=== PATIENT | female | born 1990 | race American Indian/Alaskan Native ===

== ENCOUNTER 2017-03-24 03:39 | Emergency (ER) | payer OTHER ==
[2017-03-24] MEDS ORDERED: Sodium Chloride 0.9% 1,000 ML IV ONE (04:03)
[2017-03-24] MEDS ORDERED: Pantoprazole 40 MG Vial IVPUSH ONE (04:04)
[2017-03-24] MEDS ORDERED: Ondansetron 4 MG/2 ML SDV IV ONE ×2 (04:28→06:06)
--- NOTE | 2017-03-24 04:30 | EDM.PDOC ---
ED HPI GENERAL MEDICAL PROBLEM - General Chief Complaint: Back Pain or Injury Stated Complaint: SEVERE ABD AND BACK PAIN Time Seen by Provider: 03/24/17 04:20 Source of Information: Reports: Patient History Limitations: Reports: No Limitations - History of Present Illness INITIAL COMMENTS - FREE TEXT/NARRATIVE: This 26 yo female patient reports to the ED with acute on chronic upper abdominal pain that radiates to her back. The patient reports she has had similar symptoms over the past 3 years, but has not had any relief. The patient reports she stopped taking her omeprazole and Nexium due to continued symptoms. The patient reports she has not seen her primary care provider for a while. The patient reports this episode of pain started 2 days ago and has not subsided. The patient denies any drug use other than marijuana, but admits to ETOH use. Onset Date: 03/22/17 Duration: Constant, Getting Worse Location: Reports: Abdomen (upper ), Back (radiating pain from upper abdomen into the back) Quality: Reports: Ache, Sharp Severity: Severe Improves with: Reports: None Worsens with: Reports: None Associated Symptoms: Reports: Nausea/Vomiting Upper Abdomen Pain Score (Numeric/FACES): 10 - Related Data Allergies Allergy/AdvReac Type Severity Reaction Status Date / Time No Known Allergies Allergy Verified 01/14/15 12:57 Home Meds: Home Meds Levonorgestrel [Mirena] 1 applic VAG ASDIRECTED 01/14/15 [History] Past Medical History - Past Health History Medical/Surgical History: Denies Medical/Surgical History Social & Family History - Tobacco Use Smoking Status *Q: Former Smoker Years of Tobacco use: 1 Used Tobacco, but Quit: Yes Month Tobacco Last Used: 2007 Second Hand Smoke Exposure: Yes - Alcohol Use Days Per Week of Alcohol Use: 0 - Recreational Drug Use Recreational Drug Use: No Drug Use in Last 12 Months: Yes Recreational Drug Type: Reports: Marijuana/Hashish Recreational Drug Use Frequency: Rarely ED ROS GENERAL - Review of Systems Review Of Systems: ROS reveals no pertinent complaints other than HPI. ED EXAM, GI/ABD - Physical Exam Exam: See Below Exam Limited By: No Limitations General Appearance: Alert, WD/WN, Severe Distress, Thin Eyes: Bilateral: Normal Appearance, EOMI Ears: Normal External Exam, Normal Canal, Hearing Grossly Normal, Normal TMs Nose: Normal Inspection, Normal Mucosa, No Blood Throat/Mouth: Normal Inspection, Normal Lips, Normal Teeth, Normal Gums, Normal Oropharynx, Normal Voice, No Airway Compromise Head: Atraumatic, Normocephalic Neck: Normal Inspection, Supple, Non-Tender, Full Range of Motion Respiratory/Chest: No Respiratory Distress, Lungs Clear, Normal Breath Sounds, No Accessory Muscle Use, Chest Non-Tender Cardiovascular: Normal Peripheral Pulses, Regular Rate, Rhythm, No Edema, No Gallop, No JVD, No Murmur, No Rub GI/Abdominal Exam: No Organomegaly, No Distention, No Abnormal Bruit, No Mass, Pelvis Stable, Tender (diffuse upper abdominal tenderness) (Female) Exam: Deferred Rectal (Female) Exam: Deferred Back Exam: Normal Inspection, CVA Tenderness (R) Extremities: Normal Inspection, Normal Range of Motion, Non-Tender, Normal Capillary Refill, No Pedal Edema Neurological: Alert, Oriented, CN II-XII Intact, Normal Cognition, Normal Gait, Normal Reflexes, No Motor/Sensory Deficits Psychiatric: Normal Affect, Normal Mood Skin Exam: Warm, Dry, Intact, Normal Color, No Rash Lymphatic: No Adenopathy Course - Vital Signs Last Recorded V/S: Last Vital Signs Temp 36.6 C 03/24/17 03:55 Pulse 91 03/24/17 03:55 Resp 28 H 03/24/17 03:55 BP 138/106 H 03/24/17 03:55 Pulse Ox 99 03/24/17 03:55 - Orders/Labs/Meds Labs: Laboratory Tests 03/24/17 03/24/17 03/24/17 Range/Units 04:00 04:00 04:00 WBC (5.0-10.0) 10^3/uL RBC (4.2-5.4) 10^6/uL Hgb (12.0-16.0) g/dL Hct (37.0-47.0) % MCV (80-100) fL MCH (27.0-34.0) pg MCHC (33.0-35.0) g/dL Plt Count (150-450) 10^3/uL Neut % (Auto) (42.2-75.2) % Lymph % (Auto) (20.5-50.1) % [place]zie % (Auto) (2-8) % Eos % (Auto) (1.0-3.0) % Baso % (Auto) (0.0-1.0) % Sodium (135-145) mmol/L Potassium (3.6-5.0) mmol/L Chloride (101-111) mmol/L Carbon Dioxide (21.0-31.0) mmol/L Anion Gap BUN (7-18) mg/dL Creatinine (0.6-1.3) mg/dL Est Cr Clr Drug Dosing mL/min Estimated GFR (MDRD) BUN/Creatinine Ratio Glucose (74-105) mg/dL Calcium (8.4-10.2) mg/dl Total Bilirubin (0.2-1.0) mg/dL AST (10-42) IU/L ALT (10-60) IU/L Alkaline Phosphatase (42-121) IU/L Total Protein (6.7-8.2) g/dl Albumin (3.2-5.5) g/dl Globulin Albumin/Globulin Ratio Amylase (28-100) U/L Lipase (22-51) U/L Urine Color Yellow (YELLOW) Urine Appearance Cloudy (CLEAR) Urine pH 6.0 (5.0-9.0) Ur Specific [place] 1.025 (1.005-1.030) Urine Protein 100 H (NEGATIVE) Urine Glucose (UA) Negative (NEGATIVE) Urine Ketones 40 H (NEGATIVE) Urine Occult Blood Moderate H (NEGATIVE) Urine Nitrite Negative (NEGATIVE) Urine Bilirubin Moderate H (NEGATIVE) Urine Urobilinogen 0.2 (0.2-1.0) mg/dL Ur Leukocyte Esterase Trace H (NEGATIVE) Urine RBC 5-10 H /HPF Urine WBC 10-20 H (0-5/HPF) /HPF Ur Epithelial Cells Many H /HPF Urine Bacteria Many H (0-FEW/HPF) /HPF Urine Mucus Many H /LPF Urine HCG, Qual Negative Urine Opiates Screen Positive H (NEGATIVE) Ur Oxycodone Screen Negative (NEGATIVE) Urine Methadone Screen Negative (NEGATIVE) Ur Barbiturates Screen Negative (NEGATIVE) U Tricyclic Antidepress Negative (NEGATIVE) Ur Phencyclidine Scrn Negative (NEGATIVE) Ur Amphetamine Screen Negative (NEGATIVE) U Methamphetamines Scrn Negative (NEGATIVE) Urine MDMA Screen Negative (NEGATIVE) U Benzodiazepines Scrn Negative (NEGATIVE) Urine Cocaine Screen Negative (NEGATIVE) U Marijuana (THC) Screen Positive H (NEGATIVE) 03/24/17 03/24/17 03/24/17 Range/Units 04:07 04:07 04:07 WBC 11.8 H (5.0-10.0) 10^3/uL RBC 4.81 (4.2-5.4) 10^6/uL Hgb 14.2 (12.0-16.0) g/dL Hct 42.7 (37.0-47.0) % MCV 88.8 (80-100) fL MCH 29.5 (27.0-34.0) pg MCHC 33.3 (33.0-35.0) g/dL Plt Count 267 (150-450) 10^3/uL Neut % (Auto) 77.6 H (42.2-75.2) % Lymph % (Auto) 16.6 L (20.5-50.1) % Benzie % (Auto) 5.4 (2-8) % Eos % (Auto) 0.1 L (1.0-3.0) % Baso % (Auto) 0.3 (0.0-1.0) % Sodium 141 (135-145) mmol/L Potassium 3.5 L (3.6-5.0) mmol/L Chloride 105 (101-111) mmol/L Carbon Dioxide 22.0 (21.0-31.0) mmol/L Anion Gap 17.5 BUN 17 (7-18) mg/dL Creatinine 0.9 (0.6-1.3) mg/dL Est Cr Clr Drug Dosing 90.50 mL/min Estimated GFR (MDRD) > 60 BUN/Creatinine Ratio 18.88 Glucose 146 H (74-105) mg/dL Calcium 9.8 (8.4-10.2) mg/dl Total Bilirubin 1.0 (0.2-1.0) mg/dL AST 30 (10-42) IU/L ALT 18 (10-60) IU/L Alkaline Phosphatase 54 (42-121) IU/L Total Protein 7.8 (6.7-8.2) g/dl Albumin 5.0 (3.2-5.5) g/dl Globulin 2.8 Albumin/Globulin Ratio 1.79 Amylase 59 (28-100) U/L Lipase 15 L (22-51) U/L Urine Color (YELLOW) Urine Appearance (CLEAR) Urine pH (5.0-9.0) Ur Specific [place] (1.005-1.030) Urine Protein (NEGATIVE) Urine Glucose (UA) (NEGATIVE) Urine Ketones (NEGATIVE) Urine Occult Blood (NEGATIVE) Urine Nitrite (NEGATIVE) Urine Bilirubin (NEGATIVE) Urine Urobilinogen (0.2-1.0) mg/dL Ur Leukocyte Esterase (NEGATIVE) Urine RBC /HPF Urine WBC (0-5/HPF) /HPF Ur Epithelial Cells /HPF Urine Bacteria (0-FEW/HPF) /HPF Urine Mucus /LPF Urine HCG, Qual Urine Opiates Screen (NEGATIVE) Ur Oxycodone Screen (NEGATIVE) Urine Methadone Screen (NEGATIVE) Ur Barbiturates Screen (NEGATIVE) U Tricyclic Antidepress (NEGATIVE) Ur Phencyclidine Scrn (NEGATIVE) Ur Amphetamine Screen (NEGATIVE) U Methamphetamines Scrn (NEGATIVE) Urine MDMA Screen (NEGATIVE) U Benzodiazepines Scrn (NEGATIVE) Urine Cocaine Screen (NEGATIVE) U Marijuana (THC) Screen (NEGATIVE) Meds: Medications Discontinued Medications Generic Name Dose Route Start Last Admin Trade Name Freq PRN Reason Stop Dose Admin Hydromorphone HCl 0.5 mg 03/24/17 06:08 03/24/17 06:14 Dilaudid IVPUSH 03/24/17 06:09 0.5 mg ONETIME ONE Administration Sodium Chloride 1,000 mls @ 999 mls/hr 03/24/17 04:03 03/24/17 04:16 Normal Saline IV 03/24/17 05:03 999 mls/hr .BOLUS ONE Administration Iopamidol 75 ml 03/24/17 04:52 03/24/17 05:40 Isovue-300 (61%) IVPUSH 03/24/17 04:53 75 ml ONETIME ONE Administration Ketorolac Tromethamine 30 mg 03/24/17 06:22 Toradol IVPUSH 03/24/17 06:23 ONETIME ONE Ondansetron HCl 4 mg 03/24/17 04:28 03/24/17 04:34 Zofran IV 03/24/17 04:29 4 mg ONETIME ONE Administration Ondansetron HCl 4 mg 03/24/17 06:06 03/24/17 06:14 Zofran IV 03/24/17 06:07 4 mg ONETIME ONE Administration Pantoprazole Sodium 80 mg 03/24/17 04:04 03/24/17 04:16 Protonix Iv IVPUSH 03/24/17 04:05 80 mg .BOLUS ONE Administration Departure - Departure Time of Disposition: 06:27 Disposition: Home, Self-Care 01 Condition: Fair Clinical Impression: Bilateral kidney stones Ovarian cyst Qualifiers: Laterality: left Qualified Code(s): N83.202 - Unspecified ovarian cyst, left side GERD (gastroesophageal reflux disease) Qualifiers: Esophagitis presence: without esophagitis Qualified Code(s): K21.9 - Gastro- esophageal reflux disease without esophagitis UTI (urinary tract infection) Qualifiers: Urinary tract infection type: site unspecified Hematuria presence: with hematuria Qualified Code(s): N39.0 - Urinary tract infection, site not specified ; R31.9 - Hematuria, unspecified - Discharge Information Instructions: Kidney Stones, [id number], Ovarian Cyst, [id number], Gastroesophageal Reflux Disease, Adult, Urinary Tract Infection, Adult, Easy-to- Read Forms: ED Department Discharge Care Plan Goals: The patient was advised of the examination, lab and CT results during the visit. The patient was given IV fluid, IV Toradol, IV Zofran and IV Dilaudid while in the ED. The patient was discharged with scripts for 1) Omeprazole (20 mg) #20 to take 1 by mouth 2 times per day for 10 days, Zofran ODT (4 mg) #20 to take 1 by mouth every 8 hours as needed and Cipro (500 mg) #6 to take 1 by mouth 2 times per day for 3 days. The patient should follow-up with her primary care facility for continued evaluation and management.
[2017-03-24 04:32] LABS: CHLORIDE,CL 105 mmol/L (101-111); SODIUM,NA 141 mmol/L (135-145)
[2017-03-24] MEDS ORDERED: Iopamidol 612 MG/ML 75 ML Bottle IVPUSH ONE (04:52)
[2017-03-24] MEDS ORDERED: HYDROmorphone 1 MG/ML Syringe IVPUSH ONE (06:08)
[2017-03-24] MEDS ORDERED: Ketorolac 30 MG/ML SDV IVPUSH ONE (06:22)
[2017-03-24 06:36] VITALS: BP 119/53
== END 2017-03-24 06:44 | disposition home or self-care (01) ==
LOC: DL.ED 03:39
DX: N20.0 Calculus of kidney (principal); N83.202 Unspecified ovarian cyst, left side; K21.9 Gastro-esophageal reflux disease without esophagitis; N39.0 Urinary tract infection, site not specified; Z87.891 Personal history of nicotine dependence
CPT/HCPCS: 36415; 74178; 80053; 80305; 81001; 81025; 82150; 83690; 85025; 96361; 96374; 96375; 96376; 99284; C9113; J1170; J1885; J2405; J7030; Q9967

== ENCOUNTER 2017-03-25 16:21 | Emergency (ER) | payer OTHER ==
[2017-03-25 16:35] VITALS: BP 117/69
[2017-03-25] MEDS ORDERED: Ondansetron 4 MG/2 ML SDV IV ONE ×2 (16:40→17:32)
[2017-03-25] MEDS ORDERED: Sodium Chloride 0.9% 1,000 ML IV ONE (16:40)
[2017-03-25] MEDS ORDERED: Pantoprazole 40 MG Vial IVPUSH ONE (16:41)
[2017-03-25] MEDS ORDERED: Sodium Chloride 0.9% 10 ML Syringe FLUSH PRN (16:41)
[2017-03-25 17:19] LABS: CHLORIDE,CL 106 mmol/L (101-111); SODIUM,NA 142 mmol/L (135-145)
[2017-03-25] MEDS ORDERED: GI Cocktail Oral Solution 30 ML PO ONE (17:32)
[2017-03-25] MEDS ORDERED: Sucralfate 1 GM Tab PO ONE (18:40)
--- NOTE | 2017-03-25 18:43 | EDM.PDOC ---
Scribed by Daniela Candelaria 03/25/17 [id number] for Cody Schwartz MD ED HPI GENERAL MEDICAL PROBLEM - General Chief Complaint: Genitourinary Problem Stated Complaint: SEVERE BACK PAIN/CAN'T HOLD FLUIDS DOWN Time Seen by Provider: 03/25/17 16:36 Source of Information: Reports: Patient, RN Notes Reviewed History Limitations: Reports: No Limitations - History of Present Illness INITIAL COMMENTS - FREE TEXT/NARRATIVE: Patient seen here 03/24/17 and diagnosed with UTI, kidney stone, left ovarian cyst and GERD/gastritis with nausea and vomiting. Now returns due to nausea and vomiting and can't keep down any food or liquids. Denies fever or chills. Reports the pain is about 50% better then yesterday. Location: Reports: Back Quality: Reports: Ache Severity: Severe Improves with: Reports: None Worsens with: Reports: None Associated Symptoms: Reports: No Other Symptoms Upper Mid-Anterior Abdomen Pain Score (Numeric/FACES): 5 - Related Data Allergies Allergy/AdvReac Type Severity Reaction Status Date / Time No Known Allergies Allergy Verified 01/14/15 12:57 Home Meds: Home Meds Levonorgestrel [Mirena] 1 applic VAG ASDIRECTED 01/14/15 [History] Past Medical History - Past Health History Medical/Surgical History: Denies Medical/Surgical History HEENT History: Reports: None Cardiovascular History: Reports: None Respiratory History: Reports: None Gastrointestinal History: Reports: Gastritis, GERD Other Gastrointestinal History: states not formally diagnosed - states had when she was 3 years ago Genitourinary History: Reports: UTI, Recurrent [employer] History: Reports: , Other (See Below) (ovarian cyst) Musculoskeletal History: Reports: None Neurological History: Reports: None Psychiatric History: Reports: None Endocrine/Metabolic History: Reports: None Hematologic History: Reports: None Immunologic History: Reports: None Oncologic (Cancer) History: Reports: None Dermatologic History: Reports: None Social & Family History - Family History Family Medical History: Noncontributory - Tobacco Use Smoking Status *Q: Former Smoker Years of Tobacco use: 1 Used Tobacco, but Quit: Yes Month Tobacco Last Used: 2007 Second Hand Smoke Exposure: Yes - Caffeine Use Caffeine Use: Reports: None - Alcohol Use Days Per Week of Alcohol Use: 0 - Recreational Drug Use Recreational Drug Use: No Drug Use in Last 12 Months: Yes Recreational Drug Type: Reports: Marijuana/Hashish Recreational Drug Use Frequency: Rarely ED ROS GENERAL - Review of Systems Review Of Systems: ROS reveals no pertinent complaints other than HPI. ED EXAM, RENAL/ - Physical Exam Exam: See Below Exam Limited By: No Limitations General Appearance: Alert, Thin, Other (uncomfortable appearing) Eye Exam: Bilateral Eye: Normal Inspection Ears: Normal External Exam, Normal Canal, Hearing Grossly Normal, Normal TMs Nose: Normal Inspection, Normal Mucosa, No Blood Throat/Mouth: Other (very dry oral membranes) Head: Atraumatic, Normocephalic Neck: Normal Inspection, Supple, Non-Tender, Full Range of Motion Respiratory/Chest: No Respiratory Distress, Lungs Clear, Normal Breath Sounds, No Accessory Muscle Use, Chest Non-Tender Cardiovascular: Normal Peripheral Pulses, Tachycardia GI/Abdominal: Normal Bowel Sounds, No Distention, Other (epigastric tenderness. ). No: Guarding, Rigid, Rebound (Female) Exam: Deferred Rectal (Female) Exam: Deferred Back Exam: Normal Inspection, Full Range of Motion, NT Extremities: Normal Inspection, Normal Range of Motion, Non-Tender, Normal Capillary Refill, No Pedal Edema Neurological: Alert, Oriented, CN II-XII Intact, Normal Cognition, Normal Gait, Normal Reflexes, No Motor/Sensory Deficits Psychiatric: Normal Affect, Normal Mood Skin Exam: Warm, Dry, Intact, Normal Color, No Rash Lymphatic: No Adenopathy Course - Vital Signs Last Recorded V/S: Last Vital Signs Temp 36.6 C 03/25/17 16:34 Pulse 79 03/25/17 16:34 Resp 20 03/25/17 16:34 BP 117/69 03/25/17 16:34 Pulse Ox 98 03/25/17 16:34 - Orders/Labs/Meds Orders: Active Orders 24 hr Category Date Time Status Peripheral IV Care [RC] . DIRECTED Care 03/25/17 16:41 Active Sodium Chloride 0.9% [Saline Flush] Med 03/25/17 16:41 Active 10 ml FLUSH ASDIRECTED PRN Peripheral IV Insertion Adult [OM.PC] Stat Oth 03/25/17 16:40 Ordered Medication Orders Sodium Chloride (Saline Flush) 10 ml FLUSH ASDIRECTED PRN PRN Reason: Keep Vein Open Last Admin: 08/06/17 17:06 Dose: 10 ml Labs: Laboratory Tests 03/25/17 03/25/17 Range/Units 16:53 16:53 WBC 10.8 H (5.0-10.0) 10^3/uL RBC 4.85 (4.2-5.4) 10^6/uL Hgb 14.4 (12.0-16.0) g/dL Hct 43.7 (37.0-47.0) % MCV 90.1 (80-100) fL MCH 29.7 (27.0-34.0) pg MCHC 33.0 (33.0-35.0) g/dL Plt Count 253 (150-450) 10^3/uL Neut % (Auto) 81.5 H (42.2-75.2) % Lymph % (Auto) 10.9 L (20.5-50.1) % [place] % (Auto) 7.4 (2-8) % Eos % (Auto) 0.1 L (1.0-3.0) % Baso % (Auto) 0.1 (0.0-1.0) % Sodium 142 (135-145) mmol/L Potassium 3.4 L (3.6-5.0) mmol/L Chloride 106 (101-111) mmol/L Carbon Dioxide 24.0 (21.0-31.0) mmol/L Anion Gap 15.4 BUN 14 (7-18) mg/dL Creatinine 0.8 (0.6-1.3) mg/dL Est Cr Clr Drug Dosing 89.96 mL/min Estimated GFR (MDRD) > 60 BUN/Creatinine Ratio 17.50 Glucose 113 H (74-105) mg/dL Calcium 9.3 (8.4-10.2) mg/dl Total Bilirubin 0.8 (0.2-1.0) mg/dL AST 25 (10-42) IU/L ALT 21 (10-60) IU/L Alkaline Phosphatase 49 (42-121) IU/L Total Protein 7.7 (6.7-8.2) g/dl Albumin 4.8 (3.2-5.5) g/dl Globulin 2.9 Albumin/Globulin Ratio 1.66 Meds: Medications Generic Name Dose Route Start Last Admin Trade Name Freq PRN Reason Stop Dose Admin Sodium Chloride 10 ml 03/25/17 16:41 03/25/17 17:06 Saline Flush FLUSH 10 ml ASDIRECTED PRN Administration Keep Vein Open Discontinued Medications Generic Name Dose Route Start Last Admin Trade Name Prachi PRN Reason Stop Dose Admin Al Hydroxide/Mg Hydroxide 30 ml 03/25/17 17:32 03/25/17 17:41 Gi Cocktail PO 03/25/17 17:33 30 ml ONETIME ONE Administration Sodium Chloride 1,000 mls @ 999 mls/hr 03/25/17 16:40 03/25/17 17:06 Normal Saline IV 03/25/17 17:40 999 mls/hr .BOLUS ONE Administration Ondansetron HCl 4 mg 03/25/17 16:40 03/25/17 17:07 Zofran IV 03/25/17 16:41 4 mg ONETIME ONE Administration Ondansetron HCl 4 mg 03/25/17 17:32 03/25/17 17:39 Zofran IV 03/25/17 17:33 4 mg ONETIME ONE Administration Pantoprazole Sodium 40 mg 03/25/17 16:41 03/25/17 17:08 Protonix Iv IVPUSH 03/25/17 16:42 40 mg ONETIME ONE Administration Sucralfate 1 gm 03/25/17 18:40 Carafate PO 03/25/17 18:41 ONETIME ONE Departure - Departure Time of Disposition: 18:40 Disposition: Home, Self-Care 01 Condition: Fair Clinical Impression: Gastritis, Kidney stone, UTI (urinary tract infection), Left ovarian cyst - Discharge Information Instructions: Gastritis, Adult, [id number] Forms: ED Department Discharge Additional Instructions: RX: Carafate 1gram. Clear liquid diet until vomiting resolves then advance to soft bland low fat diet as tolerated. Follow up in the clinic in 1 to 2 days for recheck. - My Orders Last 24 Hours: My Active Orders 03/25/17 16:40 Peripheral IV Insertion Adult [OM.PC] Stat 03/25/17 16:41 Peripheral IV Care [RC] . DIRECTED Sodium Chloride 0.9% [Saline Flush] 10 ml FLUSH ASDIRECTED PRN - Assessment/Plan Last 24 Hours: My Active Orders 03/25/17 16:40 Peripheral IV Insertion Adult [OM.PC] Stat 03/25/17 16:41 Peripheral IV Care [RC] . DIRECTED Sodium Chloride 0.9% [Saline Flush] 10 ml FLUSH ASDIRECTED PRN I have read and agree with the documentation that has been completed regarding this visit. By signing this record, I attest that the documentation was completed in my physical presence and is an accurate record of the encounter.
== END 2017-03-25 19:12 | disposition home or self-care (01) ==
LOC: DL.ED 16:21
DX: K29.70 Gastritis, unspecified, without bleeding (principal); N39.0 Urinary tract infection, site not specified; N83.202 Unspecified ovarian cyst, left side; N20.0 Calculus of kidney; K21.9 Gastro-esophageal reflux disease without esophagitis; Z87.440 Personal history of urinary (tract) infections; Z87.891 Personal history of nicotine dependence
CPT/HCPCS: 36415; 80053; 85025; 96361; 96374; 96375; 96376; 99284; A9270; C9113; J2405; J7030; J7050

== ENCOUNTER 2017-03-29 17:27 | Emergency (ER) | payer OTHER | END 2017-03-29 18:04 | disposition left against medical advice (07) | LOC: DL.ED 17:27 | DX: Z53.21 Procedure and treatment not carried out due to patient leaving prior to being seen by health care provider (principal) ==

== ENCOUNTER 2017-04-03 05:27 | Day surgery (SDC) | payer OTHER ==
[~2017-04-03 05:27] MED LIST: Dextrose 5%-0.45% NaCl 1,000 ML IV SCH; Sodium Chloride 0.9% 10 ML Syringe FLUSH PRN
[2017-04-03] MEDS ORDERED: Midazolam 1 MG/ML 2 ML SDV ONE (06:14)
[2017-04-03] MEDS ORDERED: fentaNYL 100 MCG/2 ML SDV ONE (06:14)
[2017-04-03] MEDS ORDERED: fentaNYL 100 MCG/2 ML SDV IV ONE ×3 (06:26→16:47)
[2017-04-03] MEDS ORDERED: Midazolam 1 MG/ML 2 ML SDV IV ONE ×4 (06:26→16:47)
--- NOTE | 2017-04-03 08:45 | OR ---
DATE: 04/03/2017 PROCEDURE: Esophagogastroduodenoscopy and multiple pinch biopsies. INSTRUMENT USED: GIF-H180 Olympus video panendoscope. PREMEDICATIONS: No oral topical anesthesia used. Fentanyl 100 mcg intravenous, Versed 2 mg intravenous. The procedure was done under pulse oximetry, BP recording, and cardiac monitoring. INDICATION: The patient with persistent previous duodenal biopsy histopathology abnormality, and upper abdominal pain, unexplained, and not responsive to medical measures, on acid suppressants. Esophagogastroduodenoscopy is performed for detection of any active erosive lesions, malignancy also under consideration, H. pylori status to be determined, small bowel biopsies to be obtained for any evidence of celiac disease, endoscopic hemostasis therapy if needed. DESCRIPTION OF PROCEDURE: The scope was passed with ease. Adequate visualization of the esophagus was made from proximal to distal areas. No upper esophageal lesions identified. No distal esophageal stricture. No uphill or downhill esophageal varices. No Angelica-Ring tear. No evidence of erosive esophagitis by [place] criteria. No esophageal polyp or tumor mass identified. Z-line was seen at around 40 cm distal to the oral verge, configuration consistent with grade 1 by ZAP classification. No proximal gastric varices noted. Gastric fundus examination by retroflexion showed no polypoid lesions. The examination of the gastric mucosa was compromised in a few areas due to the presence of adherent solid food material that could not be aspirated clear. No gastric ulcer, malignant mass, or vascular ectasia identified. Duodenal bulb showed no ulcer. Visualized second part of the duodenum was unremarkable. Multiple pinch biopsies, 4 in number were taken from different areas of the second part of the duodenum and tissues were also obtained from the duodenal bulb at 9 and 12 o'clock positions and sent for any histopathologic evidence of celiac disease. Multiple pinch biopsies taken from the gastric antrum and proximal body and sent for PyloriTek test for H. pylori and histopathology. No bleeding was noted from any of the visualized areas at the completion of examination. Photographs were taken of the duodenal bulb, gastric antrum, fundus, and distal esophagus. IMPRESSION: Normal study. The patient tolerated the procedure well. [facility] /[id number]
[2017-04-03 08:56] VITALS: BP 108/64
== END 2017-04-03 08:45 | disposition home or self-care (01) ==
LOC: DL.ENDO 05:27
PROVIDERS: ATTEND Internal Medicine Gastroenterology
DX: R10.10 Upper abdominal pain, unspecified (principal); F41.1 Generalized anxiety disorder
CPT/HCPCS: 43239; 87077; J2250; J3010; J7042

== ENCOUNTER 2017-07-21 08:00 | Emergency (ER) | payer MEDICAID, OTHER ==
--- NOTE | 2017-07-21 08:14 | EDM.PDOC ---
ED HPI GENERAL MEDICAL PROBLEM - General Chief Complaint: Abdominal Pain Stated Complaint: SICK Time Seen by Provider: 07/21/17 08:14 Source of Information: Reports: Patient, Old Records, RN, RN Notes Reviewed History Limitations: Reports: No Limitations - History of Present Illness INITIAL COMMENTS - FREE TEXT/NARRATIVE: C/O epigastric abdominal pain with vomiting. 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 Pt states she has been using marijuana for the pain, but began vomiting a few days ago. Last night she began having blood in her emesis. Denies bloody, dark, black, or melanotic stools. Also reports pelvic cramping and decreased urine output. Admits to recent EtOH use, and last drank on Sunday, . Onset: Gradual Duration: Chronic, Getting Worse Location: Reports: Abdomen Quality: Reports: Ache, Burning Severity: Severe Improves with: Reports: None Worsens with: Reports: None Associated Symptoms: Reports: No Other Symptoms Back Pain Score (Numeric/FACES): 10 - Related Data Allergies Allergy/AdvReac Type Severity Reaction Status Date / Time No Known Allergies Allergy Verified 07/21/17 08:12 Home Meds: Home Meds Omeprazole 20 mg PO DAILY 03/29/17 [History] Ondansetron [Ondansetron Odt] 4 mg PO Q8H 03/29/17 [History] Sucralfate [Carafate] 1 gm PO QID 03/29/17 [History] Past Medical History - Past Health History Medical/Surgical History: Denies Medical/Surgical History HEENT History: Reports: None Cardiovascular History: Reports: None Respiratory History: Reports: None Gastrointestinal History: Reports: Gastritis, GERD, Other (See Below) ( hypersecretory dyspepsia) Other Gastrointestinal History: states not formally diagnosed - states had when she was 1 years ago Genitourinary History: Reports: Other (See Below), UTI, Recurrent Other Genitourinary History: NEPHROLITHIASIS [employer] History: Reports: Other (See Below), Musculoskeletal History: Reports: None Neurological History: Reports: None Psychiatric History: Reports: None Endocrine/Metabolic History: Reports: None Hematologic History: Reports: None Immunologic History: Reports: None Oncologic (Cancer) History: Reports: None Dermatologic History: Reports: None - Infectious Disease History Infectious Disease History: Reports: MRSA - Past Surgical History Head Surgeries/Procedures: Reports: None GI Surgical History: Reports: EGD Social & Family History - Family History Family Medical History: Noncontributory - Tobacco Use Smoking Status *Q: Never Smoker Years of Tobacco use: 1 Used Tobacco, but Quit: Yes Month Tobacco Last Used: 2007 Second Hand Smoke Exposure: Yes - Caffeine Use Caffeine Use: Reports: None - Alcohol Use Days Per Week of Alcohol Use: 4 Number of Drinks Per Day: 2 Total Drinks Per Week: 8 - Recreational Drug Use Recreational Drug Use: Yes Drug Use in Last 12 Months: Yes Recreational Drug Type: Reports: Marijuana/Hashish Other Recreational Drug Type: Pt states that she had Pot last on Sunday to relieve her Sx Recreational Drug Use Frequency: Rarely - Living Situation & Occupation Living situation: Reports: with Family ED ROS GENERAL - Review of Systems Review Of Systems: ROS reveals no pertinent complaints other than HPI. ED EXAM, GI/ABD - Physical Exam Exam: See Below Exam Limited By: No Limitations General Appearance: Alert, WD/WN, No Apparent Distress, Active Emesis (brownish and bloody streaks in emesis) Eyes: Bilateral: Normal Appearance Nose: Normal Inspection Throat/Mouth: Normal Lips, Normal Teeth, Normal Gums, Normal Oropharynx, Normal Voice, No Airway Compromise, Other (dry oral membranes) Head: Atraumatic, Normocephalic Neck: Normal Inspection, Supple, Non-Tender, Full Range of Motion Respiratory/Chest: No Respiratory Distress, Lungs Clear, Normal Breath Sounds, No Accessory Muscle Use, Chest Non-Tender Cardiovascular: Normal Peripheral Pulses, Regular Rate, Rhythm, No Edema, No Gallop, No JVD, No Murmur, No Rub GI/Abdominal Exam: Soft, No Organomegaly, No Distention, No Abnormal Bruit, No Mass, Tender (epigastric region). No: Guarding, Rigid, Rebound (Female) Exam: Deferred Rectal (Female) Exam: Deferred Back Exam: Normal Inspection, Full Range of Motion, NT Extremities: Normal Inspection, Normal Range of Motion, Non-Tender, Normal Capillary Refill, No Pedal Edema Neurological: Alert, Oriented, CN II-XII Intact, Normal Cognition, Normal Gait, Normal Reflexes, No Motor/Sensory Deficits Psychiatric: Normal Affect, Normal Mood Skin Exam: Warm, Dry, Intact, Normal Color, No Rash Course - Vital Signs Last Recorded V/S: Last Vital Signs Temp 36.1 C 07/21/17 08:05 Pulse 83 07/21/17 10:03 Resp 16 07/21/17 10:03 BP 120/86 07/21/17 10:03 Pulse Ox 100 07/21/17 10:03 - Orders/Labs/Meds Orders: Active Orders 24 hr Category Date Time Status Peripheral IV Care [RC] . DIRECTED Care 07/21/17 08:18 Active AMYLASE [CHEM] Stat Lab 07/21/17 08:15 Ordered CBC WITH AUTO DIFF [HEME] Stat Lab 07/21/17 08:14 Ordered COMPREHENSIVE METABOLIC PN,CMP [CHEM] Stat Lab 07/21/17 08:14 Ordered DRUG SCREEN URINE BIORAD [URCHEM] Stat Lab 07/21/17 09:07 Ordered Sodium Chloride 0.9% [Normal Saline] 1,000 ml Med 07/21/17 09:41 Active IV .BOLUS Sodium Chloride 0.9% [Saline Flush] Med 07/21/17 08:17 Active 10 ml FLUSH ASDIRECTED PRN Peripheral IV Insertion Adult [OM.PC] Stat Oth 07/21/17 08:18 Ordered Medication Orders Sodium Chloride (Normal Saline) 1,000 mls @ 999 mls/hr IV .BOLUS ONE Stop: 07/21/17 10:41 Last Admin: 07/21/17 09:56 Dose: 999 mls/hr Sodium Chloride (Saline Flush) 10 ml FLUSH ASDIRECTED PRN PRN Reason: Keep Vein Open Last Admin: 07/21/17 10:02 Dose: 10 ml Labs: Laboratory Tests 07/21/17 07/21/17 07/21/17 Range/Units 08:11 08:11 08:23 WBC 13.9 H (5.0-10.0) 10^3/uL RBC 4.58 (4.2-5.4) 10^6/uL Hgb 13.6 (12.0-16.0) g/dL Hct 41.5 (37.0-47.0) % MCV 90.6 (80-100) fL MCH 29.7 (27.0-34.0) pg MCHC 32.8 L (33.0-35.0) g/dL Plt Count 265 (150-450) 10^3/uL Neut % (Auto) 80.1 H (42.2-75.2) % Lymph % (Auto) 14.2 L (20.5-50.1) % Shelby % (Auto) 5.4 (2-8) % Eos % (Auto) 0.1 L (1.0-3.0) % Baso % (Auto) 0.2 (0.0-1.0) % Sodium 141 (135-145) mmol/L Potassium 3.4 L (3.6-5.0) mmol/L Chloride 105 (101-111) mmol/L Carbon Dioxide 23.0 (21.0-31.0) mmol/L Anion Gap 16.4 BUN 17 (7-18) mg/dL Creatinine 0.8 (0.6-1.3) mg/dL Est Cr Clr Drug Dosing 97.46 mL/min Estimated GFR (MDRD) > 60 BUN/Creatinine Ratio 21.25 Glucose 151 H (74-105) mg/dL Calcium 9.9 (8.4-10.2) mg/dl Total Bilirubin 0.7 (0.2-1.0) mg/dL AST 30 (10-42) IU/L ALT 19 (10-60) IU/L Alkaline Phosphatase 51 (42-121) IU/L Total Protein 8.2 (6.7-8.2) g/dl Albumin 5.0 (3.2-5.5) g/dl Globulin 3.2 Albumin/Globulin Ratio 1.56 Amylase 50 (28-100) U/L Lipase 20 L (22-51) U/L Urine Color (YELLOW) Urine Appearance (CLEAR) Urine pH (5.0-9.0) Ur Specific Ira (1.005-1.030) Urine Protein (NEGATIVE) Urine Glucose (UA) (NEGATIVE) Urine Ketones (NEGATIVE) Urine Occult Blood (NEGATIVE) Urine Nitrite (NEGATIVE) Urine Bilirubin (NEGATIVE) Urine Urobilinogen (0.2-1.0) mg/dL Ur Leukocyte Esterase (NEGATIVE) Urine RBC /HPF Urine WBC (0-5/HPF) /HPF Ur Epithelial Cells /HPF Amorphous Sediment (0/HPF) /HPF Urine Bacteria (0-FEW/HPF) /HPF Urine Mucus /LPF Urine HCG, Qual Negative Urine Opiates Screen (NEGATIVE) Ur Oxycodone Screen (NEGATIVE) Urine Methadone Screen (NEGATIVE) Ur Barbiturates Screen (NEGATIVE) U Tricyclic Antidepress (NEGATIVE) Ur Phencyclidine Scrn (NEGATIVE) Ur Amphetamine Screen (NEGATIVE) U Methamphetamines Scrn (NEGATIVE) Urine MDMA Screen (NEGATIVE) U Benzodiazepines Scrn (NEGATIVE) Urine Cocaine Screen (NEGATIVE) U Marijuana (THC) Screen (NEGATIVE) Ethyl Alcohol < 5 mg/dL 07/21/17 07/21/17 Range/Units 08:23 08:26 WBC (5.0-10.0) 10^3/uL RBC (4.2-5.4) 10^6/uL Hgb (12.0-16.0) g/dL Hct (37.0-47.0) % MCV (80-100) fL MCH (27.0-34.0) pg MCHC (33.0-35.0) g/dL Plt Count (150-450) 10^3/uL Neut % (Auto) (42.2-75.2) % Lymph % (Auto) (20.5-50.1) % Shelby % (Auto) (2-8) % Eos % (Auto) (1.0-3.0) % Baso % (Auto) (0.0-1.0) % Sodium (135-145) mmol/L Potassium (3.6-5.0) mmol/L Chloride (101-111) mmol/L Carbon Dioxide (21.0-31.0) mmol/L Anion Gap BUN (7-18) mg/dL Creatinine (0.6-1.3) mg/dL Est Cr Clr Drug Dosing mL/min Estimated GFR (MDRD) BUN/Creatinine Ratio Glucose (74-105) mg/dL Calcium (8.4-10.2) mg/dl Total Bilirubin (0.2-1.0) mg/dL AST (10-42) IU/L ALT (10-60) IU/L Alkaline Phosphatase (42-121) IU/L Total Protein (6.7-8.2) g/dl Albumin (3.2-5.5) g/dl Globulin Albumin/Globulin Ratio Amylase (28-100) U/L Lipase (22-51) U/L Urine Color Yellow (YELLOW) Urine Appearance Cloudy (CLEAR) Urine pH 6.5 (5.0-9.0) Ur Specific Ira 1.025 (1.005-1.030) Urine Protein 100 H (NEGATIVE) Urine Glucose (UA) Negative (NEGATIVE) Urine Ketones >=160 H (NEGATIVE) Urine Occult Blood Small H (NEGATIVE) Urine Nitrite Negative (NEGATIVE) Urine Bilirubin Moderate H (NEGATIVE) Urine Urobilinogen 0.2 (0.2-1.0) mg/dL Ur Leukocyte Esterase Trace H (NEGATIVE) Urine RBC 5-10 H /HPF Urine WBC 20-30 H (0-5/HPF) /HPF Ur Epithelial Cells Many H /HPF Amorphous Sediment Few (0/HPF) /HPF Urine Bacteria Few (0-FEW/HPF) /HPF Urine Mucus Few H /LPF Urine HCG, Qual Urine Opiates Screen Negative (NEGATIVE) Ur Oxycodone Screen Negative (NEGATIVE) Urine Methadone Screen Negative (NEGATIVE) Ur Barbiturates Screen Negative (NEGATIVE) U Tricyclic Antidepress Negative (NEGATIVE) Ur Phencyclidine Scrn Negative (NEGATIVE) Ur Amphetamine Screen Negative (NEGATIVE) U Methamphetamines Scrn Negative (NEGATIVE) Urine MDMA Screen Negative (NEGATIVE) U Benzodiazepines Scrn Negative (NEGATIVE) Urine Cocaine Screen Negative (NEGATIVE) U Marijuana (THC) Screen Positive H (NEGATIVE) Ethyl Alcohol mg/dL Meds: Medications Generic Name Dose Route Start Last Admin Trade Name Freq PRN Reason Stop Dose Admin Sodium Chloride 1,000 mls @ 999 mls/hr 07/21/17 09:41 07/21/17 09:56 Normal Saline IV 07/21/17 10:41 999 mls/hr .BOLUS ONE Administration Sodium Chloride 10 ml 07/21/17 08:17 07/21/17 10:02 Saline Flush FLUSH 10 ml ASDIRECTED PRN Administration Keep Vein Open Discontinued Medications Generic Name Dose Route Start Last Admin Trade Name Freq PRN Reason Stop Dose Admin Al Hydroxide/Mg Hydroxide 30 ml 07/21/17 08:21 Gi Cocktail PO 07/21/17 08:22 ONETIME ONE Diphenhydramine HCl 25 mg 07/21/17 09:41 07/21/17 09:59 Benadryl IVPUSH 07/21/17 09:42 25 mg ONETIME ONE Administration Sodium Chloride 1,000 mls @ 999 mls/hr 07/21/17 08:19 07/21/17 08:31 Normal Saline IV 07/21/17 09:19 999 mls/hr .BOLUS ONE Administration Ondansetron HCl 4 mg 07/21/17 08:19 07/21/17 08:32 Zofran IV 07/21/17 08:20 4 mg ONETIME ONE Administration Ondansetron HCl 4 mg 07/21/17 09:41 07/21/17 09:57 Zofran IV 07/21/17 09:42 4 mg ONETIME ONE Administration Pantoprazole Sodium 40 mg 07/21/17 08:20 07/21/17 08:34 Protonix Iv IVPUSH 07/21/17 08:21 40 mg ONETIME ONE Administration Sucralfate 1 gm 07/21/17 08:21 07/21/17 09:17 Carafate PO 07/21/17 08:22 1 gm ONETIME ONE Administration - Re-Assessments/Exams Free Text/Narrative Re-Assessment/Exam: 07/21/17 10:11 I explained the exam findings, results of all diagnostic tests, working diagnosis, and any potential or additionally considered diagnoses, treatment/ disposition plan, self/home care instructions, rational for the diagnosis/ treatment plan/disposition plan, anticipated course of illness, and follow up instructions to the pt. The pt acknowledges understanding of the above explanation(s), and of the signs and symptoms which should prompt the return of the pt to the ER should those or any other concerning symptoms develop. Departure - Departure Time of Disposition: 10:07 Disposition: Home, Self-Care 01 Condition: Good Clinical Impression: Cannabinoid hyperemesis syndrome Gastritis Qualifiers: Gastritis type: other gastritis Chronicity: chronic Gastritis bleeding: with bleeding Qualified Code(s): K29.51 - Unspecified chronic gastritis with bleeding GERD (gastroesophageal reflux disease) Qualifiers: Esophagitis presence: without esophagitis Qualified Code(s): K21.9 - Gastro- esophageal reflux disease without esophagitis - Discharge Information Instructions: Gastritis, Adult, [id number] Forms: ED Department Discharge Additional Instructions: Clear liquid diet until nausea and vomiting completely resolve, then advance to soft bland diet. Avoid high fat, greasy, fried, and spicy foods. No alcohol. No aspirin, ibuprofen, motrin, advil, aleve, naproxen, naprosyn, or any other NSAID class medications. Stop marijauna use, it will cause return of abdominal pain and vomiting. Rx: Omeprazole 20mg Rx: Carafate 1g Rx: Phenergan 25mg (Do not drive while under the influence of this medication) Follow up in clinic this week for recheck. Return to ER if worse at any time. - My Orders Last 24 Hours: My Active Orders 07/21/17 08:14 CBC WITH AUTO DIFF [HEME] Stat COMPREHENSIVE METABOLIC PN,CMP [CHEM] Stat 07/21/17 08:15 AMYLASE [CHEM] Stat 07/21/17 08:17 Sodium Chloride 0.9% [Saline Flush] 10 ml FLUSH ASDIRECTED PRN 07/21/17 08:18 Peripheral IV Care [RC] . DIRECTED Peripheral IV Insertion Adult [OM.PC] Stat 07/21/17 09:07 DRUG SCREEN URINE BIORAD [URCHEM] Stat 07/21/17 09:41 Sodium Chloride 0.9% [Normal Saline] 1,000 ml IV .BOLUS - Assessment/Plan Last 24 Hours: My Active Orders 07/21/17 08:14 CBC WITH AUTO DIFF [HEME] Stat COMPREHENSIVE METABOLIC PN,CMP [CHEM] Stat 07/21/17 08:15 AMYLASE [CHEM] Stat 07/21/17 08:17 Sodium Chloride 0.9% [Saline Flush] 10 ml FLUSH ASDIRECTED PRN 07/21/17 08:18 Peripheral IV Care [RC] . DIRECTED Peripheral IV Insertion Adult [OM.PC] Stat 07/21/17 09:07 DRUG SCREEN URINE BIORAD [URCHEM] Stat 07/21/17 09:41 Sodium Chloride 0.9% [Normal Saline] 1,000 ml IV .BOLUS
[2017-07-21] MEDS ORDERED: Sodium Chloride 0.9% 10 ML Syringe FLUSH PRN (08:17)
[2017-07-21] MEDS ORDERED: Ondansetron 4 MG/2 ML SDV IV ONE ×2 (08:19→09:41)
[2017-07-21] MEDS ORDERED: Sodium Chloride 0.9% 1,000 ML IV ONE ×2 (08:19→09:41)
[2017-07-21] MEDS ORDERED: Pantoprazole 40 MG Vial IVPUSH ONE (08:20)
[2017-07-21] MEDS ORDERED: GI Cocktail Oral Solution 30 ML PO ONE (08:21)
[2017-07-21] MEDS ORDERED: Sucralfate 1 GM Tab PO ONE (08:21)
[2017-07-21 09:00] LABS: SODIUM,NA 141 mmol/L (135-145)
[2017-07-21 09:01] LABS: CHLORIDE,CL 105 mmol/L (101-111)
[2017-07-21] MEDS ORDERED: diphenhydrAMINE 50 MG/ML SDV IVPUSH ONE (09:41)
[2017-07-21 10:05] VITALS: BP 120/86
== END 2017-07-21 12:26 | disposition home or self-care (01) ==
LOC: DL.ED 08:00
DX: J66.2 Cannabinosis (principal); K29.51 Unspecified chronic gastritis with bleeding; K21.9 Gastro-esophageal reflux disease without esophagitis; Z79.899 Other long term (current) drug therapy
CPT/HCPCS: 36415; 80053; 80305; 81001; 81025; 82150; 83690; 85025; 96361; 96374; 96375; 96376; 99284; A9270; C9113; G0480; J1200; J2405; J7030; J7050

== ENCOUNTER 2020-11-30 07:11 | Inpatient (IN) | payer MEDICAID ==
[2020-11-30] MEDS ORDERED: Lidocaine 1% 30 ML SDV INJECT PRN (08:00)
[2020-11-30] MEDS ORDERED: Methylergonovine 0.2 MG/1 ML Amp IM PRN (08:00)
[2020-11-30] MEDS ORDERED: Carboprost Tromethamine 250 MCG/1 ML Amp IM PRN (08:00)
[2020-11-30] MEDS ORDERED: Lactated Ringers 1,000 ML IV SCH (08:00)
[2020-11-30] MEDS ORDERED: Lactated Ringers 1,000 ML IV ONE (08:00)
[2020-11-30] MEDS ORDERED: Misoprostol 400 MCG (4 X 100 MCG TAB) RECTAL PRN (08:00)
[2020-11-30] MEDS ORDERED: Tranexamic Acid 1,000 MG in Sodium Chloride 0.9% 100 ML IV PRN (08:00)
[2020-11-30] MEDS ORDERED: Sodium Chloride 0.9% 10 ML Syringe FLUSH PRN ×2 (08:00→10:06)
[2020-11-30] MEDS ORDERED: Ondansetron 4 MG/2 ML SDV IVPUSH PRN (08:00)
[2020-11-30] MEDS ORDERED: Oxytocin/Normal Saline 30 UNIT/500 ML BAG IV SCH (08:00)
[2020-11-30] MEDS ORDERED: fentaNYL 100 MCG/2 ML SDV ONE (08:09)
[2020-11-30] MEDS ORDERED: EPINEPHrine 1 MG/1 ML Amp ONE (08:09)
--- NOTE | 2020-11-30 09:04 | PCM.PRNOTE ---
- Free Text/Narrative Note: Requested to provide analgesia to full term patient in severe pain. Upon entering the room, patient is sitting on edge of bed complaining of severe abdominal/pelvic pain and discomfort. Procedure was discussed with patient including adverse outcomes and expectations. Pt consented to analgesia, SAB/IT. Pt placed into a proper sitting position. Landmarks for SAB/IT were identified and marked. Hands were washed and appropriate PPE was applied. Back was prepped with betadine x3. A sterile, transparent, fenestrated drape was applied. Excess betadine was removed. Using 3 mL of a 1% lidocaine solution, a skin wheel was placed at the L2/L3 interspace. A 24 ga (4 inch) Pencan spinal needle was inserted until positive for CSF. Negative for heme or paresthesias. Injected fentanyl 30 mcg, sufentanil 25 mcg, and 7.5 mg of a 0.75% bupivacaine solution with an epi wash. Pt was placed left lateral tilt position for approximately 20 minutes. There were zero complications or adverse outcomes. Will continue to monitor. Procedure Date & Time: 11/30/20 [id number]
[2020-11-30] MEDS ORDERED: Zolpidem 5 MG Tab PO PRN (10:06)
[2020-11-30] MEDS ORDERED: Benzocaine/Menthol 20%-0.5% Spray 56 GM Canister TOP PRN (10:06)
[2020-11-30] MEDS ORDERED: Simethicone 80 MG Tab.Chew PO PRN (10:06)
[2020-11-30] MEDS ORDERED: Oxytocin 10 Units/1 ML SDV IM PRN (10:06)
--- NOTE | 2020-11-30 10:53 | OBOUT ---
DATE: 11/30/2020 DATE AND TIME OF NST: 11/30/2020 from 7:10 to 7:30. REASON FOR NST: 1. Intrauterine at 38 weeks, confirmed by 9-week ultrasound. 2. Active labor. 3. Vaginal leaking, suspect spontaneous rupture of membranes. 4. GBS negative. 5. History of delivery at 36-4/7 weeks. 6. Maternal anemia. 7. G2, P0-1-0-1. NST INTERPRETATION: During this time period, heart tone baseline is approximately 130 and at least two 15 x 15 beats per minute accelerations making this strip reactive as well as reassuring. Tocometer reveals potential 12 contractions during this time period, felt by patient. ASSESSMENT/PLAN: 1. Nonstress test, reactive and reassuring. 2. Tocometer with contractions. PLAN: Initial blood pressure 140/70 with a heart rate 93, recheck was 138/63, with a heart rate 85, temperature 98. The patient was subsequently admitted. She is group B streptococcus negative. At current time of dictation, she is sitting in the tub. She was found to be approximately 3 cm on evaluation by nurse with copious amounts of clear fluid leaking from the vaginal area with grossly ruptured membranes. Please see history and physical to be done in conjunction with Ashley Rawls MS3, seen and agreed with her as well. MODL /[id number]
--- NOTE | 2020-11-30 12:14 | HP ---
HISTORY OF PRESENT ILLNESS: Susan Eller is a 30-year-old G2, P0-1-0-1 at 38 weeks 0/7 days gestation based upon ultrasound at 9 weeks gestation, who presents in spontaneous labor. She reports her water broke around 6 a.m. and contractions started shortly after around 6:30 a.m. She reports her previous was a fast labor. She is currently having intense low back pain when she feels contractions. Records called for reviewed, summarized and updated per patient as below: LABS: 1. Blood group type is O positive with a negative antibody screen. 2. Serology (RPR/syphilis) is nonreactive. 3. Rubella immune. 4. Hepatitis B surface antigen nonreactive. 5. Hepatitis C antibody nonreactive. 6. HIV from previous records negative. 7. Gonorrhea and chlamydia are negative. 8. GBS negative. PAST MEDICAL HISTORY: 1. Maternal anemia in . 2. History of delivery at 36 weeks 4 days after SROM with VAVD. 3. Subchorionic hematoma in first trimester. 4. Kidney stone. 5. Chronic abdominal pain. 6. Chronic pelvic pain. 7. Endometriosis. 8. Dysmenorrhea. 9. Menorrhagia with irregular cycle. 10.Low-grade squamous intraepithelial lesion. 11.GERD. OBSTETRIC HISTORY: G2, P0-1-0-1. delivery at 36 weeks 4 days gestation, male infant, weight 5 pounds 0 ounces. PAST SURGICAL HISTORY: Unknown. PRIOR TO ADMISSION MEDICATIONS: 1. vitamin. 2. Nortriptyline 50 mg daily. 3. Colace 100 mg capsule p.r.n. 4. Ferrous sulfate 325 mg. ALLERGIES: No known allergies. SOCIAL HISTORY: Denies tobacco or alcohol use during . Did use marijuana regularly throughout . FAMILY HISTORY: Noncontributory. No family history of bleeding/hypercoagulability disorder/genetic disorder/malignant hyperthermia. REVIEW OF SYSTEMS: Denies fevers, chills, chest pain, difficulty breathing, lower extremity edema. Promotes intermittent nausea, which she states is chronic. Denies vision changes, headache. PHYSICAL EXAMINATION: Vital Signs: BP 141/82, P 88, T 97.3, saturating on room air. General Appearance: Alert, well-appearing, in distress due to contraction pain. Lungs: Clear to auscultation, no wheezes, rales or rhonchi, symmetric air entry. Heart: Regular rate and rhythm, no murmurs. Abdomen: Gravid abdomen. FHT: Category 1. Baseline 130s. Marked variability, positive for accelerations, negative for decelerations. [place]: Was garcia regularly at 2 minute intervals. Pelvic: 4 cm, 75% effacement, -1 station, bag is ruptured. Extremities: No lower extremity edema. Skin: Has chronic skin discoloration due to hot water baths on her back. ASSESSMENT AND PLAN: Susan Eller is a 30-year-old female G2, P0-1-0-1 at 38 weeks 0/7 days gestation, confirmed on 9-week ultrasound, admitted for spontaneous rupture of membranes and spontaneous labor. 1. Active labor. 2. Spontaneous rupture of membranes. 3. Group B streptococcus negative. 4. History of delivery at 36 weeks 4 days gestation. 5. Maternal anemia during . PLAN: 1. Continue normal care. 2. We will continue to monitor progress of labor. 3. Pain management: Intrathecal placed x1. Seen with medical student. Patient was personally seen and examined with the medical student practitioner student, Ashley Rawls. I reviewed the noted scribed on my behalf and necessary changes have been made to reflect my opinion on the history, exam, assessment, and plan BRAD Lara [facility] /[id number] MTDD
--- NOTE | 2020-11-30 13:18 | DEL ---
DATE: 11/30/2020 PREOPERATIVE DIAGNOSES: 1. Intrauterine 38 weeks, confirmed by 9-week ultrasound. 2. Active labor. 3. Spontaneous rupture of membranes, approximately 6:00 a.m. on date of admission. 4. Group B streptococcus negative. 5. History of delivery at 36 and 4/7 weeks. 6. Maternal anemia history. 7. G2, P0-1-0-1. POSTOPERATIVE DIAGNOSES: 1. Intrauterine 38 weeks, confirmed by 9-week ultrasound - delivered. 2. Active labor. 3. Spontaneous rupture of membranes, approximately 6:00 a.m. on date of admission. 4. Group B streptococcus negative. 5. History of delivery at 36 and 4/7 weeks. 6. Maternal anemia history. 7. G2, P0-1-0-1. 8. bradycardia noted in the second stage of labor. 9. Rapid delivery. 10.Left vaginal posterior sidewall laceration-bleeding, requiring repair, which was repaired. PROCEDURE PERFORMED: Nonstress test, followed by spontaneous vaginal delivery with laceration-repaired. [employer] CR[employer] OPERATOR: Ashley Rawls MS-3. ANESTHESIA/ANALGESIA: The patient did receive an intrathecal in the first stage of labor. ESTIMATED BLOOD LOSS: 300 mL. FINDINGS: Male, score and weight pending. SUMMARY OF EVENTS: The patient is a 30-year-old, G2, P0-1-0-1, intrauterine at 38 weeks, confirmed by 9-week ultrasound admitted in active labor. Spontaneous rupture membranes around 6:00 a.m. on date of admission. She was GBS negative, history of delivery, history of anemia. Subsequently, patient was followed closely. Did receive an intrathecal in the first stage of labor, and then I was called to the room in a stat fashion for delivery. Upon my entry in the room, I donned sterile gown and gloves. Ashley rawls was giving scalp stimulation as heart tones were in the 70s and there was no response to this. Subsequently, catheter was called for, introduced into the bladder, yielding clear urine, and subsequently patient had a contraction. Catheter was removed. The patient pushed and vertex was delivered in LATANYA presentation, followed by rest of the infant without difficulty. Mouth and nares were suctioned. Cord was doubly clamped, cut, and infant was resuscitated on mother's abdomen. Then, approximately 10 mL of cord blood was obtained for labs. Placenta then delivered with gentle cord traction and fundal massage within 5 minutes. Perineum, vagina, and perirectal areas were examined, noted to have small abrasions, nonbleeding, except for one laceration on the left posterior vaginal wall region which was repaired with 3-0 Vicryl and made hemostatic. Mother and infant are currently stable at the time of dictation. Vacuum was called for, but with rapid delivery was not used. [facility] /[id number]
[2020-11-30] MEDS: Ibuprofen 800 MG Tab PO PRN ×2 (13:43→21:40)
[2020-11-30] MEDS: Acetaminophen 325 MG Tab PO PRN (21:38)
[2020-11-30] MEDS: Docusate Sodium 100 MG Cap PO PRN (21:39)
[2020-12-01] MEDS: Ibuprofen 800 MG Tab PO PRN (05:54)
[2020-12-01] MEDS: Acetaminophen 325 MG Tab PO PRN (05:55)
[2020-12-01] MEDS ORDERED: Ferrous Sulfate 325 MG Tab PO SCH (08:00)
[2020-12-01] MEDS: Docusate Sodium 100 MG Cap PO PRN (08:30)
[2020-12-01] MEDS ORDERED: Prenatal Multivitamin with Calcium/Folic Acid/Iron Tab PO SCH (09:00)
[2020-12-01] MEDS ORDERED: EPINEPHrine 1 MG/1 ML Amp ONE (12:34)
[2020-12-01] MEDS ORDERED: fentaNYL 100 MCG/2 ML SDV ITHECAL ONE (12:34)
[2020-12-01 14:06] VITALS: BP 133/78; PULSE 75
--- NOTE | 2020-12-02 03:54 | DISCH ---
REASON FOR ADMISSION: Spontaneous labor, vaginal delivery. OBSTETRIC HISTORY: G2, P1-1-0-2. DELIVERY: Sex: Male. Weight: 2745 g. scores: 9 and 9 at 1 and 5 minutes respectively. ADMISSION DIAGNOSES: 1. Intrauterine at 38 weeks 0/7 days gestation confirmed by 9-week ultrasound. 2. Active labor. 3. Spontaneous rupture of membranes. 4. Group B streptococcus negative. 5. History of delivery (36 weeks 4/7 days gestation). 6. Maternal anemia of . 7. G2, P0-1-0-1. FINAL DIAGNOSES: 1. G2, P1-1-0-2. 2. Group B streptococcus negative. 3. History of delivery (36 weeks 4/7 days gestation). 4. Anemia during . Hemoglobin 11.4 upon admission. 5. bradycardia during 2nd stage of labor, did not recover with scalp stimulation. 6. Left-sided first degree vaginal laceration, repaired. PROGRESS NOTE: Subjective: She complains of significant back pain, which is chronic. She has taken Motrin and Tylenol which has helped a little, but she is still in significant pain. She also was unable to sleep overnight due to the pain, so she was given Ambien, which she reports helps a little. She also reports significant nausea and vomited, primarily stomach acid earlier in the night. She denies any chest pain, shortness of breath, fevers, chills, or headaches. She is ambulating. She is voiding and had a bowel movement. She is tolerating p.o. Lochia is appropriate and decreasing. Objective: Vital Signs: T 98.6 F, P 62, BP 128/74, RR 16, on room air. General: Alert, no acute distress, appropriate affect. Heart: Regular rate and rhythm, no murmur noted. Lungs: Clear to auscultation bilaterally. Abdomen: Soft, appropriately tender, fundus firm, one fingerbreadth below umbilicus at midline. Extremities: Nontender, no edema bilaterally. LABORATORY DATA: Labs this a.m.: WBC 17.6, RBC 4.08, HGB 11.2, HCT 35.3, platelet count 311. ASSESSMENT AND PLAN: Susan Eller is a 30-year-old female G2, P1-1-0-2, day #1 following a spontaneous vaginal delivery at 38 weeks 0/7 days gestation. 1. Maternal well-being: Meeting milestones. 2. well-being: Baby at bedside, exclusively . Weight is down by 4% today. 3. Disposition: Routine cares. Advance activity. Plan for discharge home today. PRELIMINARY DISCHARGE MEDICATIONS: Please see after visit summary for the final and accurate medication list. HOSPITAL COURSE: The patient presented for delivery following SROM at 38 weeks 0/7 days gestation. heart rate dropped down into the 70s without recovery during the 2nd stage of labor. Shortly thereafter was born via spontaneous vaginal delivery. Recovery was uncomplicated. Patient discharged home in good condition. FOLLOWUP APPOINTMENTS: Six weeks for visit with Dr. Vincenzo Smith. May be seen in clinic sooner if needed for other chronic conditions. Seen with medical student. Patient was personally seen and examined with the medical student practitioner student, Ashley Rawls. I reviewed the noted scribed on my behalf and necessary changes have been made to reflect my opinion on the history, exam, assessment, and plan [facility] /[id number] MTDD
== END 2020-12-01 12:35 | disposition home or self-care (01) | DRG 807 ==
LOC: DL.OBCHECK 07:11 → DL.OB 08:01 → OBSVTOIN 09:51 → DL.OB 09:51 → EEVIPCON 09:51
PROVIDERS: ADMIT Family Medicine; ATTEND Family Medicine
PROC: 10E0XZZ Delivery of Products of Conception, External Approach (ICD-10-PCS; principal; 2020-11-30)
PROC: 4A1HXCZ Monitoring of Products of Conception, Cardiac Rate, External Approach (ICD-10-PCS; 2020-11-30)
PROC: 3E0R3BZ Introduction of Anesthetic Agent into Spinal Canal, Percutaneous Approach (ICD-10-PCS; 2020-11-30)
PROC: 0HQ9XZZ Repair Perineum Skin, External Approach (ICD-10-PCS; 2020-11-30)
DX: O99.02 Anemia complicating childbirth (principal); Z37.0 Single live birth; D64.9 Anemia, unspecified; Z3A.38 38 weeks gestation of pregnancy; O70.0 First degree perineal laceration during delivery; Z20.822 Contact with and (suspected) exposure to COVID-19
CPT/HCPCS: 36415; 59409; 85027; A9270-GY; J0171; J2405; J2590; J3010; J7120; U0002

== ENCOUNTER 2022-06-03 04:07 | Emergency (ER) | payer MEDICAID ==
[2022-06-03] MEDS ORDERED: Ondansetron 4 MG Tab.DIS PO ONE (04:08)
[2022-06-27 12:05] LABS: ANION GAP 14.4 mEq/L (7-13); CHLORIDE,CL 100 mmol/L (98-107); ESTIMATED GFR 124 mL/min (>=60); SODIUM,NA 136 mmol/L (136-145)
[2022-06-27 12:09] LABS: AMPHETAMINES,URINE NEGATIVE (NEGATIVE); BARBITURATES,URINE NEGATIVE (NEGATIVE); BENZODIAZEPINE,URINE NEGATIVE (NEGATIVE); MDMA (ECSTASY), URINE NEGATIVE (NEGATIVE); METHADONE,URINE NEGATIVE (NEGATIVE); METHAMPHETAMINES,URINE NEGATIVE (NEGATIVE); OPIATES,URINE NEGATIVE (NEGATIVE); OXYCODONE,URINE NEGATIVE (NEGATIVE); PHENCYCLIDINE,URINE NEGATIVE (NEGATIVE); TCA,URINE NEGATIVE (NEGATIVE)
== END 2022-06-03 19:08 | disposition home or self-care (01) ==
LOC: DL.ED 04:07
DX: O20.8 Other hemorrhage in early pregnancy (principal); O21.9 Vomiting of pregnancy, unspecified; Z3A.11 11 weeks gestation of pregnancy
CPT/HCPCS: 36415; 76801; 80053; 80305-QW; 80307; 81001; 84702; 84703; 85025; 87210; 99284; A9270-GY

== ENCOUNTER 2022-11-30 02:26 | Inpatient (IN) | payer MEDICAID ==
[2022-11-30] MEDS: Lactated Ringers 1,000 ML IV SCH ×2 (03:00→06:55)
[2022-11-30] MEDS ORDERED: Ondansetron 4 MG/2 ML SDV IVPUSH PRN (03:07)
[2022-11-30] MEDS ORDERED: Tranexamic Acid 1,000 MG in Sodium Chloride 0.9% 100 ML IV PRN (03:07)
[2022-11-30] MEDS ORDERED: Lidocaine 1% 30 ML SDV INJECT PRN (03:07)
[2022-11-30] MEDS ORDERED: Acetaminophen 325 MG Tab PO PRN (03:07)
[2022-11-30] MEDS ORDERED: Methylergonovine 0.2 MG/1 ML Amp IM PRN (03:07)
[2022-11-30] MEDS ORDERED: Sodium Chloride 0.9% 10 ML Syringe FLUSH PRN ×2 (03:07→04:27)
[2022-11-30] MEDS ORDERED: Lactated Ringers 1,000 ML IV ONE (03:07)
[2022-11-30] MEDS ORDERED: Carboprost Tromethamine 250 MCG/1 ML Amp IM PRN (03:07)
[2022-11-30] MEDS ORDERED: Misoprostol 400 MCG (4 X 100 MCG TAB) RECTAL PRN (03:07)
[2022-11-30] MEDS ORDERED: Oxytocin/Normal Saline 30 UNIT/500 ML BAG IV SCH (03:15)
[2022-11-30] MEDS ORDERED: Phenylephrine HCl In 0.9% NaCl 1 MG/10 ML Syringe IVPUSH PRN (03:59)
[2022-11-30] MEDS ORDERED: ePHEDrine 50 MG/ML SDV IVPUSH PRN (03:59)
[2022-11-30] MEDS ORDERED: Ropivacaine 200 MG in Premix Bag 1 BAG EPIDUR SCH (04:00)
[2022-11-30] MEDS ORDERED: Ibuprofen 800 MG Tab PO PRN (04:27)
[2022-11-30] MEDS ORDERED: Oxytocin 10 Units/1 ML SDV IM PRN (04:27)
[2022-11-30] MEDS ORDERED: Zolpidem 5 MG Tab PO PRN (04:27)
[2022-11-30] MEDS ORDERED: Simethicone 80 MG Tab.Chew PO PRN (04:27)
[2022-11-30] MEDS ORDERED: Benzocaine/Menthol 20%-0.5% Spray 78 GM Cannister TOP PRN (04:27)
[2022-11-30] MEDS: Prenatal Multivitamin with Calcium/Folic Acid/Iron Tab PO SCH ×2 (07:56→08:36)
[2022-11-30] MEDS: Docusate Sodium 100 MG Cap PO PRN (07:56)
[2022-11-30 22:53] VITALS: PULSE 76
[2022-12-01] MEDS: Prenatal Multivitamin with Calcium/Folic Acid/Iron Tab PO SCH (09:05)
[2022-12-01] MEDS: Docusate Sodium 100 MG Cap PO PRN (09:05)
[2022-12-01 09:26] VITALS: BP 109/68
== END 2022-12-01 12:55 | disposition home or self-care (01) | DRG 807 ==
LOC: DL.OBCHECK 02:26 → DL.OB 02:46 → OBSVTOIN 04:10 → DL.OB 04:10
PROVIDERS: ADMIT Family Medicine; ATTEND Family Medicine
PROC: 10E0XZZ Delivery of Products of Conception, External Approach (ICD-10-PCS; principal; 2022-11-30)
PROC: 10907ZC Drainage of Amniotic Fluid, Therapeutic from Products of Conception, Via Natural or Artificial Opening (ICD-10-PCS; 2022-11-30)
PROC: 3E0R3BZ Introduction of Anesthetic Agent into Spinal Canal, Percutaneous Approach (ICD-10-PCS; 2022-11-30)
PROC: 00HU33Z Insertion of Infusion Device into Spinal Canal, Percutaneous Approach (ICD-10-PCS; 2022-11-30)
PROC: 3E033VJ Introduction of Other Hormone into Peripheral Vein, Percutaneous Approach (ICD-10-PCS; 2022-11-30)
DX: O43.113 Circumvallate placenta, third trimester (principal); Z37.0 Single live birth; O99.814 Abnormal glucose complicating childbirth; O62.3 Precipitate labor; R73.02 Impaired glucose tolerance (oral); O77.0 Labor and delivery complicated by meconium in amniotic fluid; Z98.890 Other specified postprocedural states; Z3A.37 37 weeks gestation of pregnancy
CPT/HCPCS: 36415; 59409; 85027; A9270-GY; J2590; J2795; J7120